=== PATIENT | male | born 1995 | race Caucasian/White ===

== ENCOUNTER 2024-11-11 22:14 | Emergency (ER) | payer OTHER, SELFPAY ==
[2024-11-11 22:18] VITALS: BP 142/81
[2024-11-11 22:32] LABS: % Basophils 0.7 % (0-2); % Immature Granulocytes 0.2 % (0-0.5); % Lymphocytes 30.6 % (20.5-51.1); % Monocytes 6.9 % (1.7-9.3); % Neutrophils 57.6 % (42.2-75.2); Absolute Basophils 0.1 10^3/uL (0-0.2); Absolute Eosinophils 0.4 10^3/uL (0-0.7); Absolute Lymphocytes 2.7 10^3/uL (1.2-3.4); Absolute Monocytes 0.6 10^3/uL (0.1-0.6); Hematocrit 43.1 % (39.0-52.0); Hemoglobin 15.1 g/dL (13.0-18.0); Mean Corpuscular Hgb 32.1 pg (27.0-31.0); Mean Corpuscular Volume 91.7 fL (80.0-94.0); Mean Platelet Volume 10.5 fL (7.4-10.4); Nucleated Red Blood Cells % 0 % (-); Platelet Count 220 10^3/uL (130-400); Red Cell Dist. Width 12.3 % (11.5-14.5); White Blood Cell Count 8.7 10^3/uL (4.8-10.8)
[2024-11-11 22:33] VITALS: BP 111/70
--- NOTE | 2024-11-11 22:40 | ED.GENMED ---
History of Present Illness
General
Chief Complaint: Chest Pain
Source: patient
Exam Limitations: none
Time Seen by Provider: 11/11/24 22:27
History of Present Illness
History of Present Illness:
29-year-old male with history of anxiety presents with several days worth of intermittent chest discomfort. The pain actually starts at the top of the shoulder and radiates to the chest. The pain is not pleuritic. It lasts several minutes and
goes away. This can be random at rest or with exertion. No recent travel or surgery. No leg swelling or calf pain. He does not smoke. He is not on any hormone replacement. Currently at the time my exam he denies chest pain. No abdominal pain.
No fever or cough. No diaphoresis. He also feels palpitations at times. No other complaints at this time
Past History
Past History
ED Past Medical History: None
ED Past Surgical History: None
Social History
Tobacco: Non-smoker
Personal: Single
Employment: Employed
Phy Exam
Physical Exam
Physical Exam:
General: Well-appearing male no acute respiratory distress
HEENT: Normocephalic atraumatic
Heart: Regular rate and rhythm
Lungs: Clear no wheeze
Abdomen is soft nontender nondistended extremities: No cyanosis or edema
skin is warm no rash
Scores
Heart Score for Chest Pain Patients
STEMI patient?: No
History: Slightly or Non-Suspicious
ECG: Normal
Age: </= 45 years
Risk Factors: No Risk Factors
Troponin: </= Normal Limit
Heart Score for Chest Pain Patients: 0
Heart Score Risk: 2.5% MACE over next 6 weeks
Course
Orders/Labs/Results
Orders:
Orders
11/11/24 22:14
Electrocardiogram (*1) Urgent
Reason for Study: Chest Pain
EKG- Treatment ONCE
11/11/24 22:23
Complete Blood Count/With Diff Urgent
Comprehensive Metabolic Panel Urgent
Troponin I Urgent
11/11/24 22:40
CR Chest - 2 Views Urgent
Comment:
Reason For Exam: chest pain
Abnormal Lab Results
11/11/24
22:23
MCH 32.1 H pg
(27.0-31.0)
MPV 10.5 H fL
(7.4-10.4)
BUN 29 H mg/dl
(9-20)
11/11/24 22:23
11/11/24 22:23
Vital Signs
Initial and Last Documented VS:
Initial Vital Signs
Temp Pulse Resp BP Pulse Ox
98.2 F 63 18 142/81 100
11/11/24 22:18 11/11/24 22:18 11/11/24 22:18 11/11/24 22:18 11/11/24 22:18
Last Documented Vital Signs
Temp Pulse Resp BP Pulse Ox
98.2 F 59 19 142/81 100
11/11/24 22:18 11/11/24 22:30 11/11/24 22:30 11/11/24 22:18 11/11/24 22:30
MDM/Problems Addressed
Differential Diagnosis Includes:
Chest pain and palpitations. Pain is atypical. Unlikely to be PE in fact can rule out clinically for PE given his stable vital signs lack of thrombotic risk factors. Could be musculoskeletal discomfort as he started working out recently. EKG
shows sinus rhythm without ischemic changes. X-ray pending. Troponin pending.
*Critical Care Note
Total Time (30-74mins, 75-104mins- exclusive of procedures): Not Applicable
Update Note
Update Note:
Chest x-ray clear. Troponin undetectable. Patient's pain has been ongoing for couple days. 1 troponin very reassuring and otherwise healthy patient. Do not suspect ACS suspect possible more of a musculoskeletal type of discomfort causing the
pain. No indication for admission stable for discharge
ED Attending Note
-
Portions of this chart may have been created with voice recognition software.� Occasional wrong word or��sound alike� substitutions may have occurred due to the inherent limitations of voice recognition software.
Discharge Plan
Departure
Patient Disposition: Home (Routine Discharge)
Date of Disposition: 11/11/24
Time of Disposition: 23:50
Patient with high blood pressure during this ER visit?: No
Discharge Problem:
Chest pain
Instructions: Chest Pain PCP Follow Up
Prescriptions:
No Action
multivitamin with folic acid [Tab-A-Tristan] 1 TABLET tablet
1 tab PO DAILY
acetaminophen-codeine 1 TABLET tablet
1 tab PO Q6HPRN PRN (Reason: pain) Qty: 10 0RF
Referrals:
UNKNOWN,NO INTERVIEW [Family Provider] -
Activity Restrictions/Additional Instructions:
You may use ibuprofen or Tylenol if needed for pain. Please return here if worse otherwise follow-up with your doctor
Interventions
Interventions:
*Risk Screen - Suicide Last Done: 11/11/24 22:18
*General Assessment Last Done: 11/11/24 22:18
*Neglect/Abuse Screening Last Done: 11/11/24 22:18
Discharge Date and Time
Print Language: FRENCH
[2024-11-11 22:45] LABS: ALT (SGPT) 30 U/L (0-50); AST (SGOT) 31 U/L (17-59); Alkaline Phosphatase 60 U/L (38-126); Blood Urea Nitrogen 29 mg/dl (9-20); Calcium 9.3 mg/dl (8.4-10.2); Carbon Dioxide 25 mmol/L (22-30); Chloride 103 mmol/L (98-107); Glucose 96 mg/dl (70-99); Potassium 3.7 mmol/L (3.5-5.1); Sodium 139 mmol/L (135-145); Total Bilirubin 0.7 mg/dl (0.2-1.3); Total Protein 7.3 g/dl (6.3-8.2); eGFR > 60.00
[2024-11-11 22:52] LABS: Albumin 4.9 g/dl (3.5-5.0)
[2024-11-11 23:00] VITALS: BP 111/67
[2024-11-11 23:06] LABS: Troponin I < 0.012 ng/ml
== END 2024-11-12 00:15 | disposition home or self-care (01) ==
LOC: EMR 22:14
PROVIDERS: EMERGENCY PHYSICIAN Student in an Organized Health Care Education/Training Program
DX: R07.89 Other chest pain (principal)
CPT/HCPCS: 99285; 71046; 80053; 84484; 85025; 93005